=== PATIENT | male | born 1940 | race Caucasian/White ===

== ENCOUNTER 2022-09-06 10:00 | Outpatient (CLI) | payer BC, MEDICARE | END 2022-09-06 10:01 | disposition home or self-care (01) | LOC: CSHRAD 10:00 | PROVIDERS: ATTEND Otolaryngology Plastic Surgery within the Head & Neck | DX: R13.14 Dysphagia, pharyngoesophageal phase (principal); R63.30 Feeding difficulties, unspecified | CPT/HCPCS: 74230 ==